=== PATIENT | female | born 2005 | race African-American/Black ===

== ENCOUNTER 2024-04-27 23:19 | Emergency (ER) | payer OTHER, BC ==
[2024-04-27 23:29] VITALS: BP 130/86; PULSE 96; RESP 18; TEMP 97.5; BMI 31.3
[2024-04-27] MEDS ORDERED: IBUPROFEN 400 MG TABLET (FP) PO ONE (23:34)
[2024-04-27] MEDS: IBUPROFEN 400 MG TABLET (FP) PO ONE (23:37)
== END 2024-04-28 00:20 | disposition home or self-care (01) ==
LOC: FER 23:19
DX: S80.01XA Contusion of right knee, initial encounter (principal); V43.72XA Person on outside of car injured in collision with other type car in traffic accident, initial encounter
CPT/HCPCS: 73562-TC-RT-FY; 99283-25